=== PATIENT | male | born 1965 | race Caucasian/White ===

== ENCOUNTER 2024-07-31 15:43 | Inpatient (IN) | payer MEDICARE ==
[~2024-07-31] VITALS: Ht 185.4 cm; Wt 77.1 kg
[2024-07-31 16:15] VITALS: BP 104/62; TEMP 98.2; O2SAT 98
[2024-07-31] MEDS ORDERED: TEMAZEPAM 7.5 MG CAPSULE PO PRN (17:00)
[2024-07-31] MEDS ORDERED: MAGNESIUM HYDROXIDE 30 ML UDC PO PRN (17:00)
[2024-07-31] MEDS ORDERED: ACETAMINOPHEN 325 MG TABLET PO PRN (17:00)
[2024-07-31] MEDS ORDERED: LORAZEPAM 0.5 MG TABLET PO PRN (17:00)
[2024-07-31] MEDS: BLOOD SUGAR DIAGNOSTIC 1 EACH STRIP IN ONE (17:09)
[2024-07-31 20:00] VITALS: BP 115/74; TEMP 98; O2SAT 98
[2024-08-01 08:00] VITALS: BP 110/79; TEMP 97.8; O2SAT 100
[2024-08-01] MEDS: NICOTINE PATCH (14MG) 14 MG PATCH.TD24 TD SCH (08:32)
[2024-08-01] MEDS: OLANZAPINE 2.5 MG TABLET PO SCH (13:40)
[2024-08-01] MEDS: DIVALPROEX SODIUM 250 MG TABLET.DR PO SCH (13:41)
[2024-08-01] MEDS: LORAZEPAM 0.5 MG TABLET PO PRN (14:00)
[2024-08-01 16:00] VITALS: BP 118/83; TEMP 97.9; O2SAT 98
[2024-08-01 21:03] VITALS: BP 128/91; TEMP 98; O2SAT 96
[2024-08-02 08:00] VITALS: BP 116/82; TEMP 98.8; O2SAT 98
[2024-08-02 16:00] VITALS: BP 113/77; TEMP 98.3; O2SAT 97
[2024-08-02 20:34] VITALS: BP 110/78; TEMP 98.1; O2SAT 98
[2024-08-02] MEDS: TEMAZEPAM 7.5 MG CAPSULE PO PRN (21:19)
[2024-08-03 08:00] VITALS: BP 125/89; TEMP 97.9; O2SAT 98
[2024-08-03 16:00] VITALS: BP 129/85; TEMP 99; O2SAT 98
[2024-08-03 20:34] VITALS: BP 106/63; TEMP 98.4; O2SAT 97
[2024-08-03] MEDS: OLANZAPINE 10 MG TABLET PO SCH (21:12)
[2024-08-04 08:00] VITALS: BP 130/70; TEMP 98.2; O2SAT 98
[2024-08-04 16:00] VITALS: BP 142/93; TEMP 98.3; O2SAT 100
[2024-08-04] MEDS: MAG HYDROX/AL HYDROX/SIMETH 30 ML UDC PO PRN (21:12)
[2024-08-04] MEDS: OLANZAPINE 10 MG TABLET PO SCH (21:17)
[2024-08-05 08:00] VITALS: BP 123/82; TEMP 97.6; O2SAT 96
[2024-08-05 16:00] VITALS: BP 102/76; TEMP 97.9; O2SAT 100
[2024-08-05] MEDS: risperiDONE 1 MG TABLET PO SCH (17:05)
[2024-08-05 20:00] VITALS: BP 139/84; TEMP 98.2; O2SAT 98
[2024-08-06 08:00] VITALS: BP 146/77; TEMP 98; O2SAT 97
[2024-08-06 16:00] VITALS: BP 108/79; TEMP 98; O2SAT 99
[2024-08-06 20:00] VITALS: BP 117/90; TEMP 97.5; O2SAT 99
[2024-08-07 08:00] VITALS: BP 117/63; TEMP 97.6; O2SAT 98
[2024-08-07 16:00] VITALS: BP 127/82; TEMP 97.8; O2SAT 98
[2024-08-07 20:00] VITALS: BP 117/80; TEMP 98; O2SAT 98
[2024-08-07] MEDS: risperiDONE 1 MG TABLET PO SCH (21:50)
[2024-08-07 22:43] LABS: APPEARANCE,URINE CLEAR (CLEAR); BILIRUBIN,URINE NEGATIVE (NEGATIVE); BLOOD, URINE NEGATIVE Ery/uL (NEGATIVE); COLOR,URINE YELLOW (YELLOW); KETONES,URINE NEGATIVE (NEGATIVE); LEUKOCYTE ESTERASE ,URINE NEGATIVE (NEGATIVE); NITRITE, URINE NEGATIVE (NEGATIVE); PROTEIN,URINE NEGATIVE (NEGATIVE); UGLUCOSE NEGATIVE (NEGATIVE); UROBILINOGEN,URINE 0.2 EU/dL (0.2)
[2024-08-08 08:52] VITALS: BP 124/76; TEMP 98.3; O2SAT 98
[2024-08-08 15:48] VITALS: BP 116/85; TEMP 98; O2SAT 99
[2024-08-08 20:34] VITALS: BP 94/58; TEMP 98.6; O2SAT 99
[2024-08-09 08:00] VITALS: BP 115/80; TEMP 98; O2SAT 100
[2024-08-09 16:00] VITALS: BP 95/71; TEMP 98.2; O2SAT 98
[2024-08-09 20:46] VITALS: BP 132/60; TEMP 98.2; O2SAT 100
[2024-08-10 08:00] VITALS: BP 121/83; TEMP 98.6; O2SAT 98
[2024-08-10 16:00] VITALS: BP 114/98; TEMP 97.9; O2SAT 97
[2024-08-10] MEDS: ENSURE ENLIVE CHOC 237 ML CAN PO SCH (17:51)
[2024-08-10 21:07] VITALS: BP 107/70; TEMP 98.2; O2SAT 98
== END 2024-08-11 12:35 | DRG 885 ==
LOC: GPS 15:50
PROVIDERS: ADMIT Nurse Practitioner Psychiatric/Mental Health; ATTEND Internal Medicine
DX: F25.9 Schizoaffective disorder, unspecified (principal); F39 Unspecified mood [affective] disorder; F29 Unspecified psychosis not due to a substance or known physiological condition; F32.A Depression, unspecified; F12.90 Cannabis use, unspecified, uncomplicated; F19.10 Other psychoactive substance abuse, uncomplicated; F43.10 Post-traumatic stress disorder, unspecified; Z56.0 Unemployment, unspecified; J44.9 Chronic obstructive pulmonary disease, unspecified; Z79.899 Other long term (current) drug therapy; Z72.0 Tobacco use